=== PATIENT | male | born 1955 | race Caucasian/White ===

== ENCOUNTER 2017-12-16 14:08 | Emergency (ER) | payer SELFPAY ==
--- NOTE | 2017-12-16 14:18 | EDM.PDOC ---
ED HPI GENERAL MEDICAL PROBLEM - General Stated Complaint: VOMITING Time Seen by Provider: 12/16/17 14:10 Source of Information: Reports: Patient History Limitations: Reports: Altered Mental Status - History of Present Illness INITIAL COMMENTS - FREE TEXT/NARRATIVE: Police were called to the patient's house by a neighbor of the patient for a wellness check. The neighbor had found the patient to be jaundiced and reported coffee-ground found in multiple places around the house. EMS was called and recommended transport however, the patient refused. He was brought to the ED by his neighbor. The patient states that he was told that he looked jaundiced about one week ago. He states that he was told that he was on the verge of liver disease about 6 months ago. He is not under the care of a Public Defender or Privacy Compliance Manager. He states that he developed coffee-ground emesis last night, and maroon stools either last night or early this morning. He denies any pain. No prior similar symptoms. The patient is jaundiced. He admits that he drinks 4-5 drinks a day. Both emesis and BM in the ED are maroon. He is profoundly orthostatic. The patient's PCP is Dr. Shabbir Garcia. - Related Data Allergies Allergy/AdvReac Type Severity Reaction Status Date / Time No Known Allergies Allergy Verified 02/14/15 16:59 Home Meds: Home Meds Allopurinol [Zyloprim] 300 mg PO DAILY 12/16/17 [History] Diphenoxylate HCl/Atropine [Lomotil] 1 tab PO Q6H PRN 12/16/17 [History] Esomeprazole Magnesium [Nexium] 40 mg PO DAILY 12/16/17 [History] FLUoxetine HCl [Prozac] 40 mg PO DAILY 12/16/17 [History] Indomethacin [Indocin] 50 mg PO TID 12/16/17 [History] Meloxicam 15 mg PO DAILY 12/16/17 [History] Metoprolol Succinate 50 mg PO ASDIRECTED 12/16/17 [History] Propranolol [Inderal] 120 mg PO DAILY 12/16/17 [History] Sildenafil [Viagra] 100 mg PO BEDTIME PRN 12/16/17 [History] Past Medical History HEENT History: Reports: Hard of Hearing Other HEENT History: bilateral hearing aids Cardiovascular History: Reports: High Cholesterol, Hypertension Respiratory History: Reports: Sleep Apnea (nightly CPAP) Musculoskeletal History: Reports: Arthritis, Fracture (Fx Right hand at 20 yo Fx 3 ribs on right side 10 years ago) Psychiatric History: Reports: Anxiety, Depression Oncologic (Cancer) History: Reports: Basal Cell Carcinoma (right neck) - Past Surgical History Oncologic Surgical History: Reports: Other (See Below) (Excision of BCC off right neck) Social & Family History - Tobacco Use Smoking Status *Q: Never Smoker Second Hand Smoke Exposure: No - Alcohol Use Days Per Week of Alcohol Use: 7 Number of Drinks Per Day: 4 Total Drinks Per Week: 28 Alcohol Use Frequency: Daily - Recreational Drug Use Recreational Drug Use: No - Living Situation & Occupation Living situation: Reports: , Alone Occupation: Unemployed ED ROS GENERAL - Review of Systems Review Of Systems: ROS reveals no pertinent complaints other than HPI. ED EXAM, GI/ABD - Physical Exam Exam: See Below Exam Limited By: No Limitations General Appearance: Alert, Other (Jaundice with scleral icterus) Eyes: Bilateral: EOMI Ears: Normal External Exam, Hearing Grossly Normal Nose: Normal Inspection, No Blood Throat/Mouth: Normal Inspection, Normal Lips, Normal Voice, No Airway Compromise Head: Atraumatic, Normocephalic Neck: Normal Inspection, Full Range of Motion Respiratory/Chest: No Respiratory Distress, Lungs Clear, Normal Breath Sounds, No Accessory Muscle Use Cardiovascular: Normal Peripheral Pulses, No Edema, No Gallop, No JVD, No Murmur , No Rub, Tachycardia (regular) GI/Abdominal Exam: Normal Bowel Sounds, Soft, Non-Tender, No Organomegaly, No Distention, No Abnormal Bruit, No Mass, Other (Obese/protruberant) (Male) Exam: Deferred Rectal (Males) Exam: Deferred Back Exam: Normal Inspection, Full Range of Motion, NT Extremities: Normal Inspection, Normal Range of Motion, No Pedal Edema, Normal Capillary Refill Neurological: Alert, Oriented, Normal Cognition, No Motor/Sensory Deficits Psychiatric: Normal Affect Skin Exam: Warm, Dry, Intact, Normal Color, No Rash EKG INTERPRETATION EKG Date: 12/16/17 Time: 02:59 Rhythm: Other (Sinus tachycardia) Rate (Beats/Min): 109 [place]: LAD-Left [place] Deviation P-Wave: Present QRS: Other (LAFB) ST-T: Normal QT: Normal Comparison: No Change (02/14/2015) Course - Vital Signs Last Recorded V/S: Last Vital Signs Temp 36.3 C 12/16/17 17:50 Pulse 100 12/16/17 17:50 Resp 18 12/16/17 17:50 BP 118/73 12/16/17 17:50 Pulse Ox 100 12/16/17 17:50 Orthostatic Blood Pressure [ 56/28 Standing] - Orders/Labs/Meds Orders: Active Orders 24 hr Category Date Time Status EKG Documentation Completion [RC] STAT Care 12/16/17 14:13 Active Orthostatic Vital Signs [RC] STAT Care 12/16/17 14:13 Active CULTURE BLOOD [BC] Stat Lab 12/16/17 16:13 Received CULTURE BLOOD [BC] Stat Lab 12/16/17 16:22 Received DRUG SCREEN, URINE [URCHEM] Stat Lab 12/16/17 17:12 Ordered FRESH FROZEN PLASMA [BBK] Stat Lab 12/16/17 14:36 Results PATIENT RETYPE [BBK] Stat Lab 12/16/17 14:36 Results RED BLOOD CELLS LP [BBK] Stat Lab 12/16/17 14:36 Results TYPE AND SCREEN [BBK] Stat Lab 12/16/17 14:36 Results UA W/MICROSCOPIC [URIN] Stat Lab 12/16/17 17:12 Ordered Blood Culture x2 Reflex Set [OM.PC] Stat Oth 12/16/17 15:46 Ordered NG [Nasogastric Orogastric Tube Insertion] [OM.PC] Oth 12/16/17 14:31 Ordered Routine Transfuse PRBC [Transfuse Red Blood Cells] [COMM] Stat Oth 12/16/17 14:18 Ordered Labs: Laboratory Tests 12/16/17 12/16/17 12/16/17 Range/Units 14:36 14:36 14:36 WBC 19.08 H (4.23-9.07) K/mm3 RBC 3.02 L (4.63-6.08) M/mm3 Hgb 10.0 L (13.7-17.5) gm/L Hct 27.3 L (40.1-51.0) % MCV 90.4 (79.0-92.2) fl MCH 33.1 H (25.7-32.2) pg MCHC 36.6 H (32.2-35.5) g/dl RDW Std Deviation 61.6 H (35.1-43.9) fL Plt Count 356 H (163-337) K/mm3 MPV 10.9 (9.4-12.3) fl Neutrophils % (Manual) 92 H (40-60) % Band Neutrophils % 0 (0-10) % Lymphocytes % (Manual) 8 L (20-40) % Atypical Lymphs % 0 % Monocytes % (Manual) 0 L (2-10) % Eosinophils % (Manual) 0 L (0.8-7.0) % Basophils % (Manual) 0 L (0.2-1.2) Platelet Estimate Adequate Plt Morphology Comment Normal Hypochromasia 2+ moderate Poikilocytosis 1+ slight Anisocytosis 2+ moderate Macrocytosis 2+ moderate RBC Morph Comment Not Reportable PT (8.0-13.0) SECONDS INR APTT (22-36) SECONDS Puncture Site ABG pH (7.35-7.45) ABG pCO2 (35.0-45.0) mmHg ABG pO2 (80.0-100.0) mmHg ABG HCO3 (22.0-26.0) meq/L ABG O2 Saturation (96.0-97.0) % ABG Base Excess (-2-2.0) Fredy Test A-a Gradient mmHg O2 Delivery Device FiO2 (21.00-100.00) % Sodium 138 (136-145) mEq/L Potassium 3.0 L (3.5-5.1) mEq/L Chloride 92 L (98-107) mEq/L Carbon Dioxide 20 L (21-32) mEq/L Anion Gap 29.0 H (5-15) BUN 95 H (7-18) mg/dL Creatinine 5.6 H (0.7-1.3) mg/dL Est Cr Clr Drug Dosing 13.57 mL/min Estimated GFR (MDRD) 10 (>60) mL/min BUN/Creatinine Ratio 17.0 (14-18) Glucose 135 H (74-106) mg/dL Lactic Acid 8.1 H (0.4-2.0) mmol/L Calcium 8.6 (8.5-10.1) mg/dL Magnesium 1.6 L (1.8-2.4) mg/dl Total Bilirubin 29.1 H* (0.2-1.0) mg/dL Direct Bilirubin (0.0-0.2) mg/dl GGT 693 H (15-85) U/L AST 147 H (15-37) U/L ALT 17 (16-63) U/L Alkaline Phosphatase 326 H (46-116) U/L Troponin I < 0.017 (0.00-0.056) ng/mL Total Protein 4.9 L (6.4-8.2) g/dl Albumin 1.9 L (3.4-5.0) g/dl Globulin 3.0 gm/dL Albumin/Globulin Ratio 0.6 L (1-2) Lipase 81 (73-393) U/L Urine Color (Yellow) Urine Appearance (Clear) Urine pH (5.0-8.0) Ur Specific [place] (1.005-1.030) Urine Protein (Negative) Urine Glucose (UA) (Negative) Urine Ketones (Negative) Urine Occult Blood (Negative) Urine Nitrite (Negative) Urine Bilirubin (Negative) Urine Urobilinogen (0.2-1.0) Ur Leukocyte Esterase (Negative) Urine RBC (0-5) /hpf Urine WBC (0-5) /hpf Ur Epithelial Cells (0-5) /hpf Amorphous Sediment (NOT SEEN) /hpf Urine Bacteria (FEW) /hpf Urine Mucus (FEW) /hpf Salicylates (2.8-20) mg/dL Urine Opiates Screen (NEGATIVE) Ur Buprenorphine Scrn (NEGATIVE) Ur Oxycodone Screen (NEGATIVE) Urine Methadone Screen (NEGATIVE) Ur Propoxyphene Screen (NEGATIVE) Acetaminophen 0 L (10-30) ug/mL Ur Barbiturates Screen (NEGATIVE) Ur Tricyclics Screen (NEGATIVE) Ur Phencyclidine Scrn (NEGATIVE) Ur Amphetamine Screen (NEGATIVE) U Methamphetamines Scrn (NEGATIVE) U Benzodiazepines Scrn (NEGATIVE) U Cocaine Metab Screen (NEGATIVE) U Marijuana (THC) Screen (NEGATIVE) Ethyl Alcohol 0.00 (0.00) gm% Blood Type Gel Antibody Screen Crossmatch 12/16/17 12/16/17 12/16/17 Range/Units 14:36 14:36 14:36 WBC (4.23-9.07) K/mm3 RBC (4.63-6.08) M/mm3 Hgb (13.7-17.5) gm/L Hct (40.1-51.0) % MCV (79.0-92.2) fl MCH (25.7-32.2) pg MCHC (32.2-35.5) g/dl RDW Std Deviation (35.1-43.9) fL Plt Count (163-337) K/mm3 MPV (9.4-12.3) fl Neutrophils % (Manual) (40-60) % Band Neutrophils % (0-10) % Lymphocytes % (Manual) (20-40) % Atypical Lymphs % % Monocytes % (Manual) (2-10) % Eosinophils % (Manual) (0.8-7.0) % Basophils % (Manual) (0.2-1.2) Platelet Estimate Plt Morphology Comment Hypochromasia Poikilocytosis Anisocytosis Macrocytosis RBC Morph Comment PT 20.1 H (8.0-13.0) SECONDS INR 1.87 APTT 41 H (22-36) SECONDS Puncture Site ABG pH (7.35-7.45) ABG pCO2 (35.0-45.0) mmHg ABG pO2 (80.0-100.0) mmHg ABG HCO3 (22.0-26.0) meq/L ABG O2 Saturation (96.0-97.0) % ABG Base Excess (-2-2.0) Fredy Test A-a Gradient mmHg O2 Delivery Device FiO2 (21.00-100.00) % Sodium (136-145) mEq/L Potassium (3.5-5.1) mEq/L Chloride (98-107) mEq/L Carbon Dioxide (21-32) mEq/L Anion Gap (5-15) BUN (7-18) mg/dL Creatinine (0.7-1.3) mg/dL Est Cr Clr Drug Dosing mL/min Estimated GFR (MDRD) (>60) mL/min BUN/Creatinine Ratio (14-18) Glucose (74-106) mg/dL Lactic Acid (0.4-2.0) mmol/L Calcium (8.5-10.1) mg/dL Magnesium (1.8-2.4) mg/dl Total Bilirubin (0.2-1.0) mg/dL Direct Bilirubin (0.0-0.2) mg/dl GGT (15-85) U/L AST (15-37) U/L ALT (16-63) U/L Alkaline Phosphatase (46-116) U/L Troponin I (0.00-0.056) ng/mL Total Protein (6.4-8.2) g/dl Albumin (3.4-5.0) g/dl Globulin gm/dL Albumin/Globulin Ratio (1-2) Lipase (73-393) U/L Urine Color (Yellow) Urine Appearance (Clear) Urine pH (5.0-8.0) Ur Specific [place] (1.005-1.030) Urine Protein (Negative) Urine Glucose (UA) (Negative) Urine Ketones (Negative) Urine Occult Blood (Negative) Urine Nitrite (Negative) Urine Bilirubin (Negative) Urine Urobilinogen (0.2-1.0) Ur Leukocyte Esterase (Negative) Urine RBC (0-5) /hpf Urine WBC (0-5) /hpf Ur Epithelial Cells (0-5) /hpf Amorphous Sediment (NOT SEEN) /hpf Urine Bacteria (FEW) /hpf Urine Mucus (FEW) /hpf Salicylates < 0.2 L (2.8-20) mg/dL Urine Opiates Screen (NEGATIVE) Ur Buprenorphine Scrn (NEGATIVE) Ur Oxycodone Screen (NEGATIVE) Urine Methadone Screen (NEGATIVE) Ur Propoxyphene Screen (NEGATIVE) Acetaminophen (10-30) ug/mL Ur Barbiturates Screen (NEGATIVE) Ur Tricyclics Screen (NEGATIVE) Ur Phencyclidine Scrn (NEGATIVE) Ur Amphetamine Screen (NEGATIVE) U Methamphetamines Scrn (NEGATIVE) U Benzodiazepines Scrn (NEGATIVE) U Cocaine Metab Screen (NEGATIVE) U Marijuana (THC) Screen (NEGATIVE) Ethyl Alcohol (0.00) gm% Blood Type O POSITIVE Gel Antibody Screen Negative Crossmatch See Detail 12/16/17 12/16/17 12/16/17 Range/Units 14:36 15:09 17:12 WBC (4.23-9.07) K/mm3 RBC (4.63-6.08) M/mm3 Hgb (13.7-17.5) gm/L Hct (40.1-51.0) % MCV (79.0-92.2) fl MCH (25.7-32.2) pg MCHC (32.2-35.5) g/dl RDW Std Deviation (35.1-43.9) fL Plt Count (163-337) K/mm3 MPV (9.4-12.3) fl Neutrophils % (Manual) (40-60) % Band Neutrophils % (0-10) % Lymphocytes % (Manual) (20-40) % Atypical Lymphs % % Monocytes % (Manual) (2-10) % Eosinophils % (Manual) (0.8-7.0) % Basophils % (Manual) (0.2-1.2) Platelet Estimate Plt Morphology Comment Hypochromasia Poikilocytosis Anisocytosis Macrocytosis RBC Morph Comment PT (8.0-13.0) SECONDS INR APTT (22-36) SECONDS Puncture Site Lt radial ABG pH 7.50 H (7.35-7.45) ABG pCO2 23.3 L (35.0-45.0) mmHg ABG pO2 79.0 L (80.0-100.0) mmHg ABG HCO3 18.1 L (22.0-26.0) meq/L ABG O2 Saturation 96.1 (96.0-97.0) % ABG Base Excess -3.7 L (-2-2.0) Fredy Test Positive A-a Gradient 27 mmHg O2 Delivery Device Room air FiO2 21.00 (21.00-100.00) % Sodium (136-145) mEq/L Potassium (3.5-5.1) mEq/L Chloride (98-107) mEq/L Carbon Dioxide (21-32) mEq/L Anion Gap (5-15) BUN (7-18) mg/dL Creatinine (0.7-1.3) mg/dL Est Cr Clr Drug Dosing mL/min Estimated GFR (MDRD) (>60) mL/min BUN/Creatinine Ratio (14-18) Glucose (74-106) mg/dL Lactic Acid (0.4-2.0) mmol/L Calcium (8.5-10.1) mg/dL Magnesium (1.8-2.4) mg/dl Total Bilirubin (0.2-1.0) mg/dL Direct Bilirubin 24.50 H (0.0-0.2) mg/dl GGT (15-85) U/L AST (15-37) U/L ALT (16-63) U/L Alkaline Phosphatase (46-116) U/L Troponin I (0.00-0.056) ng/mL Total Protein (6.4-8.2) g/dl Albumin (3.4-5.0) g/dl Globulin gm/dL Albumin/Globulin Ratio (1-2) Lipase (73-393) U/L Urine Color Dark yellow (Yellow) Urine Appearance Clear (Clear) Urine pH 5.5 (5.0-8.0) Ur Specific [place] 1.020 (1.005-1.030) Urine Protein Trace H (Negative) Urine Glucose (UA) Trace H (Negative) Urine Ketones Trace H (Negative) Urine Occult Blood Negative (Negative) Urine Nitrite Negative (Negative) Urine Bilirubin 3+ H (Negative) Urine Urobilinogen 1.0 (0.2-1.0) Ur Leukocyte Esterase Negative (Negative) Urine RBC 0-5 (0-5) /hpf Urine WBC 0-5 (0-5) /hpf Ur Epithelial Cells 0-5 (0-5) /hpf Amorphous Sediment Few H (NOT SEEN) /hpf Urine Bacteria Few (FEW) /hpf Urine Mucus Not seen (FEW) /hpf Salicylates (2.8-20) mg/dL Urine Opiates Screen (NEGATIVE) Ur Buprenorphine Scrn (NEGATIVE) Ur Oxycodone Screen (NEGATIVE) Urine Methadone Screen (NEGATIVE) Ur Propoxyphene Screen (NEGATIVE) Acetaminophen (10-30) ug/mL Ur Barbiturates Screen (NEGATIVE) Ur Tricyclics Screen (NEGATIVE) Ur Phencyclidine Scrn (NEGATIVE) Ur Amphetamine Screen (NEGATIVE) U Methamphetamines Scrn (NEGATIVE) U Benzodiazepines Scrn (NEGATIVE) U Cocaine Metab Screen (NEGATIVE) U Marijuana (THC) Screen (NEGATIVE) Ethyl Alcohol (0.00) gm% Blood Type Gel Antibody Screen Crossmatch 12/16/17 Range/Units 17:12 WBC (4.23-9.07) K/mm3 RBC (4.63-6.08) M/mm3 Hgb (13.7-17.5) gm/L Hct (40.1-51.0) % MCV (79.0-92.2) fl MCH (25.7-32.2) pg MCHC (32.2-35.5) g/dl RDW Std Deviation (35.1-43.9) fL Plt Count (163-337) K/mm3 MPV (9.4-12.3) fl Neutrophils % (Manual) (40-60) % Band Neutrophils % (0-10) % Lymphocytes % (Manual) (20-40) % Atypical Lymphs % % Monocytes % (Manual) (2-10) % Eosinophils % (Manual) (0.8-7.0) % Basophils % (Manual) (0.2-1.2) Platelet Estimate Plt Morphology Comment Hypochromasia Poikilocytosis Anisocytosis Macrocytosis RBC Morph Comment PT (8.0-13.0) SECONDS INR APTT (22-36) SECONDS Puncture Site ABG pH (7.35-7.45) ABG pCO2 (35.0-45.0) mmHg ABG pO2 (80.0-100.0) mmHg ABG HCO3 (22.0-26.0) meq/L ABG O2 Saturation (96.0-97.0) % ABG Base Excess (-2-2.0) Fredy Test A-a Gradient mmHg O2 Delivery Device FiO2 (21.00-100.00) % Sodium (136-145) mEq/L Potassium (3.5-5.1) mEq/L Chloride (98-107) mEq/L Carbon Dioxide (21-32) mEq/L Anion Gap (5-15) BUN (7-18) mg/dL Creatinine (0.7-1.3) mg/dL Est Cr Clr Drug Dosing mL/min Estimated GFR (MDRD) (>60) mL/min BUN/Creatinine Ratio (14-18) Glucose (74-106) mg/dL Lactic Acid (0.4-2.0) mmol/L Calcium (8.5-10.1) mg/dL Magnesium (1.8-2.4) mg/dl Total Bilirubin (0.2-1.0) mg/dL Direct Bilirubin (0.0-0.2) mg/dl GGT (15-85) U/L AST (15-37) U/L ALT (16-63) U/L Alkaline Phosphatase (46-116) U/L Troponin I (0.00-0.056) ng/mL Total Protein (6.4-8.2) g/dl Albumin (3.4-5.0) g/dl Globulin gm/dL Albumin/Globulin Ratio (1-2) Lipase (73-393) U/L Urine Color (Yellow) Urine Appearance (Clear) Urine pH (5.0-8.0) Ur Specific [place] (1.005-1.030) Urine Protein (Negative) Urine Glucose (UA) (Negative) Urine Ketones (Negative) Urine Occult Blood (Negative) Urine Nitrite (Negative) Urine Bilirubin (Negative) Urine Urobilinogen (0.2-1.0) Ur Leukocyte Esterase (Negative) Urine RBC (0-5) /hpf Urine WBC (0-5) /hpf Ur Epithelial Cells (0-5) /hpf Amorphous Sediment (NOT SEEN) /hpf Urine Bacteria (FEW) /hpf Urine Mucus (FEW) /hpf Salicylates (2.8-20) mg/dL Urine Opiates Screen Negative (NEGATIVE) Ur Buprenorphine Scrn Negative (NEGATIVE) Ur Oxycodone Screen Negative (NEGATIVE) Urine Methadone Screen Negative (NEGATIVE) Ur Propoxyphene Screen Negative (NEGATIVE) Acetaminophen (10-30) ug/mL Ur Barbiturates Screen Negative (NEGATIVE) Ur Tricyclics Screen Negative (NEGATIVE) Ur Phencyclidine Scrn Negative (NEGATIVE) Ur Amphetamine Screen Negative (NEGATIVE) U Methamphetamines Scrn Negative (NEGATIVE) U Benzodiazepines Scrn Negative (NEGATIVE) U Cocaine Metab Screen Negative (NEGATIVE) U Marijuana (THC) Screen Negative (NEGATIVE) Ethyl Alcohol (0.00) gm% Blood Type Gel Antibody Screen Crossmatch Meds: Medications Discontinued Medications Generic Name Dose Route Start Last Admin Trade Name Freq PRN Reason Stop Dose Admin Hetastarch/Sodium Chloride 1,000 ml 12/16/17 14:36 12/16/17 14:53 Hetastarch 6% In Normal Saline IV 12/16/17 14:37 1,000 ml NOW STA Administration Hetastarch/Sodium Chloride 500 mls @ 999 mls/hr 12/16/17 14:30 Hetastarch 6% In Normal Saline IV ASDIRECTED BRITTANEY Octreotide Acetate 500 mcg/ 500 mls @ 50 mls/hr 12/16/17 14:30 12/16/17 18:11 Sodium Chloride IV Not Given Q10H BRTITANEY 50 MCG/HR Pantoprazole Sodium 80 mg/ 100 mls @ 200 mls/hr 12/16/17 14:21 12/16/17 15:02 Sodium Chloride IV 12/16/17 14:50 Not Given .BOLUS ONE Pantoprazole Sodium 80 mg/ 100 mls @ 10 mls/hr 12/16/17 14:30 12/16/17 15:01 Sodium Chloride IV 8 mg/hr Q10H BRITTANEY 10 mls/hr Administration 8 MG/HR Hetastarch/Sodium Chloride Confirm 12/16/17 14:31 12/16/17 14:53 Hetastarch 6% In Normal Saline Administered 12/16/17 14:32 Not Given Dose 500 mls @ as directed .ROUTE .STK-MED ONE Octreotide Acetate 500 mcg/ 250 mls @ 25 mls/hr 12/16/17 14:32 12/16/17 15:17 Sodium Chloride IV 50 mcg/hr Q10H BRITTANEY 25 mls/hr Administration 50 MCG/HR Sodium Chloride 1,000 mls @ 100 mls/hr 12/16/17 15:45 12/16/17 15:35 Normal Saline IV 12/20/17 15:38 100 mls/hr ASDIRECTED BRITTANEY Administration Magnesium Sulfate 2 gm/ Premix 50 mls @ 50 mls/hr 12/16/17 16:17 12/16/17 17: 15 IV 12/16/17 17:16 50 mls/hr ONETIME ONE Administration Piperacillin Sod/Tazobactam 100 mls @ 200 mls/hr 12/16/17 16:55 12/16/17 17: 14 Sod 4.5 gm/ Sodium Chloride IV 12/16/17 17:24 200 mls/hr ONETIME ONE Administration Lidocaine HCl 10 ml 12/16/17 14:19 12/16/17 14:41 Xylocaine 2% Jelly MUCMEM 12/16/17 14:20 10 ml ONETIME ONE Administration Octreotide Acetate 50 mcg 12/16/17 14:19 12/16/17 14:54 Sandostatin SUBCUT 12/16/17 14:20 50 mcg ONETIME ONE Administration Ondansetron HCl 4 mg 12/16/17 14:31 12/16/17 15:00 Zofran IVPUSH 12/16/17 14:32 4 mg ONETIME ONE Administration Pantoprazole Sodium 80 mg 12/16/17 14:59 12/16/17 15:01 Protonix Iv IVPUSH 12/16/17 15:00 80 mg ONETIME ONE Administration - Re-Assessments/Exams Free Text/Narrative Re-Assessment/Exam: 12/16/17 14:17 The patient is profoundly orthostatic. Because he is jaundiced, indictating cirrhosis, I presume that his serum oncotic pressure will be low. I am therefore going to order 500 ml hetastarch. I have already ordered type and screen, but will order 2 units PRBCs. 12/16/17 14:59 Portable chest radiograph reviewed. Poor inspiratory effort. Cardiac silhouette is within normal limits. No pulmonary vascular congestion. No pleural effusions. No focal infiltrate. No pneumothorax. The NGT tip is in the stomach via the esophagus. Formal read per the Radiologist pending. 12/16/17 15:12 The patient's ABG represents either an [id number] primary respiratory alkalosis, or a mixed acute respiratory alkalosis with a small metabolic acidosis. At this point, this is most likely due to liver failure, although other etiologies are possible. The patient's PTT is elevated at 41, and his INR is elevated at 1.87. Remaining lab tests are still pending. 12/16/17 15:46 The patient's lactic acid level has returned as substantially elevated at 8.1. This is likely from liver dysfunction and does not likely represent sepsis, however, I have ordered 2 sets of blood cultures. 12/16/17 16:18 The patient's CMP finds his potassium depressed at 3.0, magnesium depressed at 1.6, bicarbonate depressed at 20, and anion gap elevated at 29. His BUN/Cr is significantly elevated at 95/5.6, TBil substantially elevated at 29.1 with a DBil 24.5. His AST is only slightly elevated at 147 with an ALT normal at 17, but his GGTP is significantly elevated at 693. Based on his chemistry panel findings it appears that his ABG represents a mixed acute respiratory alkalosis and anion gap metabolic acidosis. I have ordered 2 g Mg-rider. The patient will need to be transferred to [place]. He sates that he has been to [facility] in the past. 12/16/17 16:36 We are unable to reach [facility]. Trying [facility]. 12/16/17 16:50 Case discussed with [facility] at 16:37. Case then discussed with Dr. Rob Morales, Mobile Security Architect at [facility], at 16:40. He accepts the patient for transfer. We will send the patient by helicopter. Departure - Departure Time of Disposition: 16:50 Disposition: DC/Tfer to [facility] Condition: Serious Clinical Impression: Upper GI bleed, Jaundice, High anion gap metabolic acidosis, Hypokalemia, Hypomagnesemia, Coagulopathy - Discharge Information Referrals: Shabbir Garcia Jr, MD [Primary Care Provider] - Forms: ED Department Discharge - My Orders Last 24 Hours: My Active Orders 12/16/17 14:13 EKG Documentation Completion [RC] STAT Orthostatic Vital Signs [RC] STAT 12/16/17 14:18 Transfuse PRBC [Transfuse Red Blood Cells] [COMM] Stat 12/16/17 14:31 NG [Nasogastric Orogastric Tube Insertion] [OM.PC] Routine 12/16/17 14:36 FRESH FROZEN PLASMA [BBK] Stat PATIENT RETYPE [BBK] Stat RED BLOOD CELLS LP [BBK] Stat TYPE AND SCREEN [BBK] Stat 12/16/17 15:46 Blood Culture x2 Reflex Set [OM.PC] Stat 12/16/17 16:13 CULTURE BLOOD [BC] Stat 12/16/17 16:22 CULTURE BLOOD [BC] Stat 12/16/17 17:12 DRUG SCREEN, URINE [URCHEM] Stat UA W/MICROSCOPIC [URIN] Stat - Assessment/Plan Last 24 Hours: My Active Orders 12/16/17 14:13 EKG Documentation Completion [RC] STAT Orthostatic Vital Signs [RC] STAT 12/16/17 14:18 Transfuse PRBC [Transfuse Red Blood Cells] [COMM] Stat 12/16/17 14:31 NG [Nasogastric Orogastric Tube Insertion] [OM.PC] Routine 12/16/17 14:36 FRESH FROZEN PLASMA [BBK] Stat PATIENT RETYPE [BBK] Stat RED BLOOD CELLS LP [BBK] Stat TYPE AND SCREEN [BBK] Stat 12/16/17 15:46 Blood Culture x2 Reflex Set [OM.PC] Stat 12/16/17 16:13 CULTURE BLOOD [BC] Stat 12/16/17 16:22 CULTURE BLOOD [BC] Stat 12/16/17 17:12 DRUG SCREEN, URINE [URCHEM] Stat UA W/MICROSCOPIC [URIN] Stat
[2017-12-16] MEDS ORDERED: Lidocaine 2% Jelly 10 ML Urojet MUCMEM ONE (14:19)
[2017-12-16] MEDS ORDERED: Octreotide 50 MCG/1 ML Amp SUBCUT ONE (14:19)
[2017-12-16] MEDS ORDERED: Pantoprazole 80 MG in Sodium Chloride 0.9% 100 ML IV ONE (14:21)
[2017-12-16] MEDS ORDERED: Hetastarch in NS 500 ML IV SCH (14:30)
[2017-12-16] MEDS ORDERED: Octreotide 500 MCG in Sodium Chloride 0.9% 499 ML IV SCH (14:30)
[2017-12-16] MEDS ORDERED: Pantoprazole 80 MG in Sodium Chloride 0.9% 100 ML IV SCH (14:30)
[2017-12-16] MEDS ORDERED: Hetastarch in NS 500 ML ONE (14:31)
[2017-12-16] MEDS ORDERED: Ondansetron 4 MG/2 ML SDV IVPUSH ONE (14:31)
[2017-12-16] MEDS ORDERED: SODIUM CHLORIDE 0.9% IV SCH (14:32)
[2017-12-16] MEDS ORDERED: OCTREOTIDE IV SCH (14:32)
[2017-12-16] MEDS ORDERED: Hetastarch 6% in NS 500 ML Bag IV STA (14:36)
[2017-12-16] MEDS ORDERED: Pantoprazole 40 MG Vial IVPUSH ONE (14:59)
[2017-12-16] MEDS ORDERED: Sodium Chloride 0.9% 1,000 ML IV SCH (15:45)
[2017-12-16 15:53] LABS: ACETAMINOPHEN 0 ug/mL (10-30)
--- NOTE | 2017-12-16 15:53 | CR ---
Chest: Portable view of the chest was obtained. Comparison: Prior chest x-ray of 02/14/15. Heart size is normal. Upper mediastinum is within normal limits. Equivocal tubing overlying the mediastinum possibly due to poorly seen nasogastric tube. Please correlate. Lungs are clear. Bony structures are unremarkable. Widening of the paratracheal soft tissues is noted which is a stable finding from prior chest x-ray and therefore incidental. Impression: 1. Questionable nasogastric tube. Please correlate. 2. Nothing acute is appreciated on portable chest x-ray. Diagnostic code #2
[2017-12-16] MEDS ORDERED: Magnesium Sulfate/Water 2 GM in Premix Bag 1 BAG IV ONE (16:17)
[2017-12-16] MEDS ORDERED: Piperacillin/Tazobactam 4.5 GM in Sodium Chloride 0.9% 100 ML IV ONE (16:55)
[2017-12-16 18:16] VITALS: BP 118/73
== END 2017-12-16 17:50 ==
LOC: JD.ED 14:08
DX: K92.2 Gastrointestinal hemorrhage, unspecified (principal); R17 Unspecified jaundice; E87.2 Acidosis; E83.42 Hypomagnesemia; E87.6 Hypokalemia; D68.9 Coagulation defect, unspecified; E78.00 Pure hypercholesterolemia, unspecified; I10 Essential (primary) hypertension; Z79.899 Other long term (current) drug therapy
CPT/HCPCS: 36415; 36430; 36600; 51702; 71045; 80053; 80306; 81001; 82248; 82803; 82977; 83605; 83690; 83735; 84484; 85025; 85610; 85730; 86850; 86900; 86901; 86922; 87040; 93005; 96365; 96366; 96368; 96372; 96375; 99285; C9113; G0480; J2354; J2405; J2543; J7030; J7040; J7050; P9016; P9017; 93010; J3475